=== PATIENT | male | born 1975 | race Hispanic/Latino ===

== ENCOUNTER 2023-05-08 11:30 | Emergency (ER) | payer OTHER ==
[~2023-05-08] VITALS: Ht 165.1 cm; Wt 81.6 kg
[2023-05-08 12:15] LABS: SARS-CoV-2, RNA, NAAT NEGATIVE SARS CoV-2 (NEGATIVE)
[2023-05-08 12:24] LABS: INFLUENZA TYPE A Negative For Type A (NEGATIVE); INFLUENZA TYPE B Negative For Type B (NEGATIVE)
[2023-05-08 12:38] LABS: RAPID GROUP A STREP positive (NEGATIVE)
[2023-05-08] MEDS ORDERED: IBUP-2070 PO (16:18)
[2023-05-08] MEDS ORDERED: PENI500T2 PO (16:18)
[2023-05-08] MEDS ORDERED: CEFTRIAXONE 1G VIAL IM ONE ×2 (16:30)
[2023-05-08] MEDS ORDERED: KETOROLAC 30MG VIAL (30MG/ML) IM ONE (16:30)
[2023-05-08] MEDS ORDERED: PENICILLIN G BENZATHINE LA 1.2 MILUNITS/2 ML SYG IM ONE (16:30)
[2023-05-08 17:26] VITALS: BP 132/92; PULSE 119; RESP 18; O2SAT 96
== END 2023-05-08 17:30 | disposition home or self-care (01) ==
LOC: EDH 11:30
DX: J02.0 Streptococcal pharyngitis (principal); Z20.822 Contact with and (suspected) exposure to COVID-19; Z90.49 Acquired absence of other specified parts of digestive tract
CPT/HCPCS: 99284; 87635; 87880; 87804 ×2; 96372 ×2; C9803; J0696; J1885

== ENCOUNTER 2024-03-29 08:12 | Emergency (ER) | payer SELFPAY ==
[~2024-03-29] VITALS: Ht 165.1 cm; Wt 80.7 kg
[~2024-03-29 08:12] MED LIST: IBUP-2070 PO; PENI500T2 PO
[2024-03-29 08:14] VITALS: BP 131/107; PULSE 64; RESP 18
== END 2024-03-29 08:25 | disposition left against medical advice (07) ==
LOC: EDH 08:12
DX: R42 Dizziness and giddiness (principal); Z53.21 Procedure and treatment not carried out due to patient leaving prior to being seen by health care provider
CPT/HCPCS: 99281